=== PATIENT | male | born 1950 | race Caucasian/White ===

== ENCOUNTER → 2018-01-16 | Outpatient (CLI) | payer MEDICARE ==
--- NOTE | 2018-01-16 17:12 | RAD ---
Acromioclavicular joints, 2 views, 01/16/2018: HISTORY: Right-sided pain AP views were obtained with and without weightbearing. The acromioclavicular and coracoclavicular distances are fairly symmetric. No instability is seen with weightbearing. No fracture or destructive bony lesion is seen. IMPRESSION: No significant abnormality is detected. Electronically signed by: Tito Awad MD (01/16/2018 5:09 PM) [facility]
== END | disposition home or self-care (01) ==
LOC: DXRAD 12:05
PROVIDERS: ATTEND Neuromusculoskeletal Medicine & OMM
DX: S49.91XA Unspecified injury of right shoulder and upper arm, initial encounter (principal); X58.XXXA Exposure to other specified factors, initial encounter; Y93.89 Activity, other specified; Y92.89 Other specified places as the place of occurrence of the external cause; Y99.8 Other external cause status
CPT/HCPCS: 73050